=== PATIENT | female | born 1960 | race Caucasian/White ===

== ENCOUNTER 2019-04-16 13:17 | Day surgery (SDC) | payer OTHER ==
[~2019-04-16] VITALS: Ht 160 cm; Wt 66.1 kg
[~2019-04-16 13:17] MED LIST: atenolol; omeprazole
[2019-04-16 15:06] VITALS: BP 148/67; PULSE 76; RESP 20
[2019-04-16] MEDS ORDERED: PROPOFOL 40 ML ONE (15:58)
[2019-04-16] MEDS ORDERED: LIDOCAINE 2% (SDV) 5 ML INJ ONE (15:59)
[2019-04-16 16:45] VITALS: BP 116/55; PULSE 68; RESP 16
[2019-04-16 17:00] VITALS: BP 103/55; PULSE 67; RESP 17
[2019-04-16] MEDS ORDERED: hydrALAzine 20 MG INJ IV PRN (17:00)
[2019-04-16] MEDS ORDERED: ONDANSETRON 4 MG INJ IV PRN (17:00)
[2019-04-16] MEDS ORDERED: FENTAnyl 50 MCG/ML VIAL IV PRN (17:00)
[2019-04-16] MEDS ORDERED: LABETALOL HCL 20MG INJ IV PRN (17:00)
[2019-04-16] MEDS ORDERED: EPHEDrine 25 MG/5 ML SYG IV PRN (17:00)
== END 2019-04-16 17:13 | disposition home or self-care (01) ==
LOC: GIL 13:17
PROVIDERS: ATTEND Internal Medicine Gastroenterology
DX: Z12.11 Encounter for screening for malignant neoplasm of colon (principal); K64.8 Other hemorrhoids
CPT/HCPCS: 88305